=== PATIENT | female | born 1930 | race Caucasian/White ===

== ENCOUNTER 2021-05-14 14:44 | Inpatient (IN) | payer MEDICARE, BC ==
[~2021-05-14] VITALS: Ht 170.2 cm; Wt 64.4 kg
[~2021-05-14 14:44] MED LIST: ASPI81TA31 PO; ESZO1TAB11 PO; GABA300C PO; HERB LAX PEG; HYDR-4354 PO; LEVO125T PO; NORT10CA PO; OLME20TA13 PO; PANT40TA49 PO; PRIM50TA PO; PROP80CA59 PO; ROSU5TAB PO; VALA100026 PO
[2021-05-14] MEDS ORDERED: IV NORMAL SALINE 1000 ML BAG IV ONE (15:15)
[2021-05-14] MEDS ORDERED: PIPERACILLIN SODIUM/TAZOBACTAM 3.375 G in IV DEXTROSE 5% 50 ML IV ONE (15:15)
[2021-05-14] MEDS ORDERED: GINK30CA3 PO (15:24)
[2021-05-14] MEDS ORDERED: GABA600T12 PO (15:24)
[2021-05-14] MEDS ORDERED: CHOL400T32 PO (15:24)
[2021-05-14] MEDS ORDERED: MULT-594 PO (15:24)
[2021-05-14] MEDS ORDERED: LORA-258 PO (15:24)
[2021-05-14 15:39] LABS: CARBON DIOXIDE 28 mmol/L (21-32); CHLORIDE 103 mmol/L (98-107); GLUCOSE 119 mg/dL (74-106); POTASSIUM 3.1 mmol/L (3.5-5.1); UREA NITROGEN, BLOOD 19 mg/dL (7-18)
[2021-05-14 15:43] LABS: HEMATOCRIT 39.7 % (31.2-41.9); MEAN CORPUSCULAR VOLUME 91.9 fL (75.5-95.3); PLATELET COUNT (AUTO) 147 K/uL (179-408)
[2021-05-14] MEDS ORDERED: PIPERACILLIN/TAZOBACTAM/D5W 50 ML IV ONE (15:48)
[2021-05-14 15:52] LABS: ALANINE AMINOTRANSFERASE 45 U/L (14-59); ALKALINE PHOSPHATASE 60 U/L (50-136); ASPARTATE AMINOTRANSFERASE 33 U/L (15-37); BILIRUBIN,DIRECT 0.1 mg/dL (0.0-0.2); BILIRUBIN,TOTAL 0.5 mg/dL (0.2-1.0); TOTAL PROTEIN, SERUM 6.1 g/dL (6.4-8.2)
--- NOTE | 2021-05-14 16:03 | NUR ---
Urine collected and taken to LAB. Pt' family at the bedside.
[2021-05-14 16:23] LABS: *BILIRUBIN,URIN NEGATIVE (NEGATIVE); *BLOOD, URINE 1+ (NEGATIVE); *CLARITY,URINE SLIGHTLY CLOUDY (CLEAR); *COLOR,URINE YELLOW (YELLOW); *KETONES,URINE NEGATIVE (NEGATIVE); *UROBILINOGEN,URINE 0.2 E.U./dl (NORMAL); LEUKOCYTE ESTERASE ,URINE 3+ (NEGATIVE); NITRITE, URINE POSITIVE (NEGATIVE); UGLUCOSE NEGATIVE (NEGATIVE)
[2021-05-14] MEDS ORDERED: POTASSIUM BICARBONATE/CIT AC 25 MEQ TABLET.EFF PO ONE (17:00)
[2021-05-14] MEDS ORDERED: POTASSIUM BICARBONATE/CIT AC 25 MEQ TABLET.EFF ONE (17:17)
[2021-05-14] MEDS ORDERED: PHENAZOPYRIDINE HCL 100 MG TABLET ONE (17:42)
[2021-05-14] MEDS ORDERED: PHENAZOPYRIDINE HCL 100 MG TABLET PO ONE (17:45)
--- NOTE | 2021-05-14 17:50 | NUR ---
LA of 3.3 reported Md. jeffrey
--- NOTE | 2021-05-14 18:58 | NUR ---
Report given to Hortencia Hayden
--- NOTE | 2021-05-14 19:13 | NUR ---
Received report from LUZ Jennings for continuity of care. Patient pending inpatient telemetry admission for urosepsis. Patient A/Ox4, speech is clear, speaks in complete sentences. SIOBHAN has already discussed the patient case with [facility], and has been accepted. Will continue to monitor patient until care is transferred.
--- NOTE | 2021-05-14 19:35 | NUR ---
Per Peri costume director patient is okay to have caregiver come upstairs with the patient when she is admitted.
[2021-05-14 19:47] LABS: BACTERIA,URINE MANY /HPF (NONE SEEN); RBC,URINE 20-50 /HPF (0-3); SQUAMOUS EPITHELIAL CELL,UR MODERATE /HPF (NONE SEEN); WBC,URINE TNTC /HPF (0-3)
--- NOTE | 2021-05-14 20:12 | NUR ---
Report given to LUZ Simpson
--- NOTE | 2021-05-14 20:56 | NUR ---
Patient transported to TELE floor via gurney.
[2021-05-14] MEDS ORDERED: ONDANSETRON 4 MG/2 ML VIAL IV PRN (21:00)
[2021-05-14] MEDS: NORTRIPTYLINE HCL 10 MG CAPSULE PO SCH (21:00)
[2021-05-14] MEDS ORDERED: MAGNESIUM HYDROXIDE 30 ML LIQUID UDC PO PRN (21:00)
[2021-05-14] MEDS ORDERED: TEMAZEPAM 15 MG CAPSULE PO PRN (21:00)
--- NOTE | 2021-05-14 21:00 | NUR ---
Admitted an 89 y.o female patient from ER via [facility] DX: UTI, SEPSIS. Patient AAO, sitter with patient upon admission. Assessment done. Plan of care discussed with patient and sitter. Verbalized understanding. LFA saline locked patent when checked but leaking. Dressing changed.
[2021-05-14] MEDS ORDERED: TEMAZEPAM 7.5 MG CAPSULE PO PRN (21:15)
[2021-05-14 21:30] VITALS: BP 157/82
--- NOTE | 2021-05-14 22:00 | NUR ---
Incontinent of urine. Diaper changed. Skin care provided. Patient forgetful and tend to ask repetitive questions. ?Dementia. With mild tremors, c/o being cold. Extra blankets provided. Addendum: 05/15/21 at 0222 by WARD WASBHURN RN Amended: Links added. Addendum: 05/15/21 at 0223 by WARD WASHBURN RN Amended: Links added.
[2021-05-14] MEDS ORDERED: CEFTRIAXONE 1 G VIAL ONE (22:14)
[2021-05-14] MEDS: POTASSIUM CHLORIDE 20 MEQ in IV NS 1000 ML 1,000 ML IV PRN (22:20)
[2021-05-14] MEDS: CEFTRIAXONE 1 G in IV DEXTROSE 5% 50 ML IV SCH (22:22)
--- NOTE | 2021-05-14 22:30 | NUR ---
Patient's daughter Macarena called ; plan of care discussed.
[2021-05-14] MEDS: DOCUSATE SODIUM 100 MG CAPSULE PO SCH (22:44)
[2021-05-14] MEDS: PRIMIDONE 50 MG TABLET PO SCH (22:44)
--- NOTE | 2021-05-14 22:45 | NUR ---
PO meds given. No swallowing difficulty. Addendum: 05/15/21 at 0225 by WARD WASHBURN RN Amended: Links added. Addendum: 05/15/21 at 0230 by WARD WASHBURN RN Amended: Links added. Addendum: 05/15/21 at 0230 by WARD WASHBURN RN Amended: Links added. Addendum: 05/15/21 at 0230 by WARD WASHBURN RN Amended: Links added. Addendum: 05/15/21 at 0230 by WARD WASHBURN RN Amended: Links added. Addendum: 05/15/21 at 0231 by WARD WASHBURN RN Amended: Links added. Addendum: 05/15/21 at 0231 by WARD WASHBURN RN Amended: Links added. Addendum: 05/15/21 at 0231 by WARD WASHBURN RN Amended: Links added. Addendum: 05/15/21 at 0231 by WARD WASHBURN RN Amended: Links added.
--- NOTE | 2021-05-14 23:10 | NUR ---
c/o pain on urination, Tylenol po given. Diaper changed, toro Carlson remains with patient and helps with care. Addendum: 05/15/21 at 0230 by WARD WASHBURN RN Amended: Links added. Addendum: 05/15/21 at 0 by WARD WASHBURN RN Amended: Links added. Addendum: 05/15/21 at 0230 by WARD WASHBURN RN Amended: Links added. Addendum: 05/15/21 at 0230 by WARD WASHBURN RN Amended: Links added. Addendum: 05/15/21 at 0231 by WARD WASHBURN RN Amended: Links added. Addendum: 05/15/21 at 0231 by WARD WASHBURN RN Amended: Links added. Addendum: 05/15/21 at 0231 by WARD WASHBURN RN Amended: Links added. Addendum: 05/15/21 at 0231 by WARD WASHBURN RN Amended: Links added.
[2021-05-14] MEDS: ACETAMINOPHEN 325 MG TABLET PO PRN (23:14)
[2021-05-15 00:03] VITALS: BP 140/85
[2021-05-15] MEDS ORDERED: REMEDY ESSENTIAL ZINC PASTE 113 GM TOP PRN (01:30)
--- NOTE | 2021-05-15 03:30 | NUR ---
Patient called, c/o leg neuropathy, was given Tylenol at 2314. Incontinent of jose urine; diaper changed, skin care provided.
[2021-05-15 04:06] VITALS: BP 135/75
[2021-05-15] MEDS: LEVOTHYROXINE SODIUM 125 MCG TABLET PO SCH (06:13)
[2021-05-15] MEDS: PANTOPRAZOLE SODIUM 40 MG TABLET.DR PO SCH (06:13)
--- NOTE | 2021-05-15 06:35 | NUR ---
VS stable. IV infusing well.
[2021-05-15 07:14] LABS: HEMATOCRIT 38.7 % (31.2-41.9); MEAN CORPUSCULAR HEMOGLOBIN 31.8 uug (24.7-32.8); MEAN CORPUSCULAR VOLUME 90.9 fL (75.5-95.3); PLATELET COUNT (AUTO) 145 K/uL (179-408)
[2021-05-15 07:49] LABS: BILIRUBIN,TOTAL 0.7 mg/dL (0.2-1.0); CREATININE 0.9 mg/dL (0.6-1.3); MAGNESIUM 1.9 mg/dL (1.8-2.4); PHOSPHOROUS 3.1 mg/dL (2.5-4.9); TOTAL PROTEIN, SERUM 6.2 g/dL (6.4-8.2)
[2021-05-15] MEDS: REMEDY ESSENTIAL ZINC PASTE 113 GM TOP SCH (08:00)
[2021-05-15] MEDS: ASPIRIN 81 MG TAB.CHEW PO SCH (08:00)
--- NOTE | 2021-05-15 10:01 | NUR ---
WOUND CARE CONSULT: LEFT BREASTFOLD REDNESS/RASH NOTED. RECOMMENDATIONS MADE FOR SKIN PROTECTION. DISCUSSED WITH NURSING STAFF. MD IN AGREEMENT WITH PLAN OF CARE.
[2021-05-15 12:03] VITALS: BP 141/97
[2021-05-15] MEDS: POTASSIUM CHLORIDE 20 MEQ in IV NS 1000 ML 1,000 ML IV PRN (12:26)
[2021-05-15] MEDS ORDERED: PROP20TA7 PO (14:46)
[2021-05-15] MEDS ORDERED: LEVO40CA PO (14:54)
[2021-05-15] MEDS: CLOTRIMAZOLE 1% CREAM 30 GM TUBE TOP SCH (16:16)
[2021-05-15 16:30] VITALS: BP 165/87
[2021-05-15] MEDS: AMLODIPINE 5 MG TABLET PO SCH (16:56)
[2021-05-15] MEDS: PHENAZOPYRIDINE HCL 100 MG TABLET PO SCH (16:57)
--- NOTE | 2021-05-15 19:30 | NUR ---
Patient alert able to make needs known, no sob no chest pain, tele monitor sinus rhythm sinus tachy, still complain of bladder pain/discomfort, on Pyridium given by am RN, given Tylenol 650mg for lower extremities pain, sitters at bedside, cont on abx for uti, cont to monitor.
[2021-05-15] MEDS: CEFTRIAXONE 1 G in IV DEXTROSE 5% 50 ML IV SCH (20:29)
[2021-05-15] MEDS: DOCUSATE SODIUM 100 MG CAPSULE PO SCH (20:29)
[2021-05-15] MEDS: ACETAMINOPHEN 325 MG TABLET PO PRN (20:29)
[2021-05-15] MEDS: NORTRIPTYLINE HCL 10 MG CAPSULE PO SCH (20:30)
[2021-05-15] MEDS: PRIMIDONE 50 MG TABLET PO SCH (20:30)
[2021-05-15 20:35] VITALS: BP 192/88
[2021-05-16] MEDS: PHENAZOPYRIDINE HCL 100 MG TABLET PO SCH ×4 (00:10→21:32)
[2021-05-16] MEDS: REMEDY ESSENTIAL ZINC PASTE 113 GM TOP SCH ×3 (00:12→20:07)
[2021-05-16 00:16] VITALS: BP 136/79
[2021-05-16] MEDS: POTASSIUM CHLORIDE 20 MEQ in IV NS 1000 ML 1,000 ML IV PRN ×2 (03:25→16:33)
--- NOTE | 2021-05-16 03:48 | NUR ---
Patient complain of constipation, given MOM 30cc as ordered, patient voiding well, no further complain of bladder pain at this time, continue to monitor.
[2021-05-16 04:16] VITALS: BP 165/102
[2021-05-16] MEDS: LEVOTHYROXINE SODIUM 125 MCG TABLET PO SCH (06:15)
[2021-05-16] MEDS: PANTOPRAZOLE SODIUM 40 MG TABLET.DR PO SCH (06:15)
--- NOTE | 2021-05-16 06:48 | NUR ---
Patient awake no sob no chest pain, no bm yet will continue to monitor, given pyridium meds for bladder and painful urination. Patient voiding well, rendered good darrius care, no odor noted BP elevated due to bladder pain, will recheck BP in few minutes.
[2021-05-16] MEDS: AMLODIPINE 5 MG TABLET PO SCH (08:29)
[2021-05-16] MEDS: ASPIRIN 81 MG TAB.CHEW PO SCH (08:29)
[2021-05-16] MEDS ORDERED: hydrALAZINE HCL 25 MG TABLET PO SCH (08:30)
[2021-05-16] MEDS: CLOTRIMAZOLE 1% CREAM 30 GM TUBE TOP SCH ×2 (08:33→16:30)
[2021-05-16] MEDS: hydrALAZINE HCL 25 MG TABLET PO PRN (08:39)
--- NOTE | 2021-05-16 09:00 | NUR ---
pt BP was elevated, 181/101 HR 102. MD was notified. Medication orders obtained and administered. Will monitor Pt. No complaint of head ache or dizziness. Comfort measures provided. CG at bedside.
[2021-05-16] MEDS: PROPRANOLOL HCL 20 MG TABLET PO SCH ×3 (09:12→16:33)
[2021-05-16] MEDS: GABAPENTIN 100 MG CAPSULE PO SCH ×3 (09:12→16:30)
[2021-05-16] MEDS: VALSARTAN 160 MG TABLET PO SCH (09:13)
[2021-05-16 12:00] VITALS: BP 112/59
[2021-05-16 16:32] VITALS: BP 117/49
[2021-05-16] MEDS: CEFTRIAXONE 1 G in IV DEXTROSE 5% 50 ML IV SCH (20:05)
[2021-05-16] MEDS: DOCUSATE SODIUM 100 MG CAPSULE PO SCH (20:06)
[2021-05-16] MEDS: PRIMIDONE 50 MG TABLET PO SCH (20:06)
[2021-05-16] MEDS: NORTRIPTYLINE HCL 10 MG CAPSULE PO SCH (20:06)
--- NOTE | 2021-05-16 20:23 | NUR ---
Patient in bed alert and able to make needs known.No c/o pain .No SOB .On Ra.NSR on Tele.Iv on left FA 22g with IVF infusing well.Compliant with medication .Adm IV ATB as ordered for UTI. No a/r noted.Caregiver at bedside. Will continue to monitor.
[2021-05-16 20:35] VITALS: BP 140/76
[2021-05-17 00:35] VITALS: BP 162/91
[2021-05-17] MEDS: hydrALAZINE HCL 25 MG TABLET PO PRN (00:48)
[2021-05-17 04:32] VITALS: BP 150/82
[2021-05-17] MEDS: PHENAZOPYRIDINE HCL 100 MG TABLET PO SCH (05:39)
[2021-05-17] MEDS: POTASSIUM CHLORIDE 20 MEQ in IV NS 1000 ML 1,000 ML IV PRN (05:51)
[2021-05-17] MEDS: LEVOTHYROXINE SODIUM 125 MCG TABLET PO SCH (06:01)
[2021-05-17] MEDS: PANTOPRAZOLE SODIUM 40 MG TABLET.DR PO SCH (06:01)
[2021-05-17] MEDS: GABAPENTIN 100 MG CAPSULE PO SCH (09:41)
[2021-05-17] MEDS: VALSARTAN 160 MG TABLET PO SCH (09:45)
[2021-05-17] MEDS: ASPIRIN 81 MG TAB.CHEW PO SCH (09:46)
[2021-05-17] MEDS: AMLODIPINE 5 MG TABLET PO SCH (09:46)
[2021-05-17] MEDS: PROPRANOLOL HCL 20 MG TABLET PO SCH (09:46)
[2021-05-17] MEDS: CLOTRIMAZOLE 1% CREAM 30 GM TUBE TOP SCH (09:46)
[2021-05-17] MEDS: REMEDY ESSENTIAL ZINC PASTE 113 GM TOP SCH (09:47)
[2021-05-17] MEDS ORDERED: NITR100C11 PO (10:10)
[2021-05-17 11:16] VITALS: BP 143/78
--- NOTE | 2021-05-17 11:41 | NUR ---
Discharge paper work given to child care teacher and instructed with prescriptions, IV removed with tip intact. Pictures taken for discharge of wounds and belongings accounted for. Awaiting transportation for roll picker.
== END 2021-05-17 11:45 | disposition home or self-care (01) | DRG 871 ==
LOC: ER 14:44 → MEDSURG3 20:03 → TELE3 21:00 → MEDSURG3 05-17 10:30
PROVIDERS: ADMIT Internal Medicine; ATTEND Internal Medicine
DX: A41.9 Sepsis, unspecified organism (principal); I21.A1 Myocardial infarction type 2; G93.41 Metabolic encephalopathy; N39.0 Urinary tract infection, site not specified; E87.6 Hypokalemia; E03.9 Hypothyroidism, unspecified; R74.01 Elevation of levels of liver transaminase levels; E78.5 Hyperlipidemia, unspecified; R53.1 Weakness; Z88.2 Allergy status to sulfonamides; B96.20 Unspecified Escherichia coli [E. coli] as the cause of diseases classified elsewhere; I10 Essential (primary) hypertension; I95.9 Hypotension, unspecified; R77.8 Other specified abnormalities of plasma proteins; Z20.822 Contact with and (suspected) exposure to COVID-19; Z79.890 Hormone replacement therapy; I34.1 Nonrheumatic mitral (valve) prolapse
CPT/HCPCS: 36415; 71045; 83605; 83735; 84100; 84443; 84484; 85025; 85730; 87040; 87077; 87086; 93005; 93307; 97161; A4663; A6209; G0378; J0696; J2405; J2543; J3480; J7030; J7060